=== PATIENT | female | born 1975 | race Caucasian/White ===

== ENCOUNTER → 2016-05-26 | Day surgery (SDC) | payer OTHER ==
[2016-05-24 17:00] VITALS: BMI 34.2
[~2016-05-26] MED LIST: ACETAMINOPHEN 1000 MG/100 ML VIAL (NON FORMULARY) IVPB ONE; ACETAMINOPHEN INJECTION 100 ML IVPB ONE; DEXAMETHASONE SOD PHOSPHATE 4 MG/1 ML VIAL ONE; KETOROLAC TROMETHAMINE 30 MG/1 ML VIAL ONE; LACTATED RINGERS SOLUTION 1,000 ML IV SCH; LIDOCAINE 1%/EPI 1:100000 (50 ML MULTI DOSE VIAL) ONE; LIDOCAINE HCL 1%, 10 MG/ML (20ML VIAL) IJ ONE; LIDOCAINE HCL 1%, 10 MG/ML (20ML VIAL) ONE; MIDAZOLAM HCL 2 MG/2 ML SINGLE DOSE VIAL ONE; ONDANSETRON 4 MG/2 ML VIAL IVPB PRN; ONDANSETRON 4 MG/2 ML VIAL IVPUSH PRN; OXYCODONE/APAP 5/325MG COMBO TABLET PO ONE; PROMETHAZINE HCL 25 MG/1 ML VIAL IVPUSH PRN; PROPOFOL 20 ML ONE; SODIUM CHLORIDE 1,000 ML IV SCH; ceFAZolin SODIUM 1 GM VIAL IVPB ONE; ceFAZolin SODIUM 1 GM VIAL ONE
[2016-05-26 11:21] VITALS: TEMP 98
[2016-05-26 12:49] VITALS: BP 108/64; PULSE 88
--- NOTE | 2016-05-27 10:09 | OP ---
DATE OF OPERATION: 05/26/2016 PREOPERATIVE DIAGNOSIS: Sebaceous cyst of the left scalp. POSTOPERATIVE DIAGNOSIS: Sebaceous cyst of the left scalp. PROCEDURE PERFORMED: Excision of sebaceous cyst of the left scalp. OPERATING SURGEON: Bubba Caruso MD ANESTHESIA: Local with MAC. OPERATIVE PROCEDURE: The patient was brought into the operating room, placed on the OR table in supine position. At that point, the patient was delivered of anesthesia, and then, her head was turned to the right side in order to expose the left side of the scalp. There was an approximately 3.5-4-cm sebaceous cyst under the skin posterior to the left ear. The left ear was then taped out of the way, and then, the hair over the mass was then cut, and the left side of the scalp behind the ear was then prepped and draped in the usual manner. At that point, 1% lidocaine without epinephrine was delivered to the area, and once this took effect, a scalpel was used to make an approximately 3.5-cm incision over the area. The incision was carried down through the skin and only very slightly into the very thin subcutaneous tissue. Immediately upon getting to subcutaneous tissues noted to be the mass, this was now unroofed in all 4 circumferential directions, starting first medially or anteriorly towards the ear, then continuing anteriorly and superiorly, and finally laterally towards the back of the scalp. This was done mostly with electrocautery which prevented any bleeding, and the mass, the base of it, was on the skull. As the mass was then lifted up, electrocautery continued to do the dissection until finally the mass was removed and sent off the field as specimen. There was some very minor bleeding, which was coming from the scalp muscle, which was easily controlled. At that point, irrigation was placed into the wound. The deeper layer of muscle was closed with 3-0 Vicryl in interrupted fashion, and the skin was closed with 3-0 nylon in vertical mattress fashion. Bacitracin ointment was applied. The patient was then awoken from the anesthesia and sent out of the operating room to the recovery room in stable condition. EXPECTED BLOOD LOSS: 20 mL. CONDITION: Patient transferred to the recovery room in stable condition. Dev [id number]
--- NOTE | 2016-05-27 12:26 | PATH ---
Surgical Pathology Report Patient Name: PATRICIA OLIVEIRA [facility]. Rec. #: [id number] /Age/Gender: 1975 (Age: 41) / F Account: [id number] Location: [facility] SURGICAL Taken: 05/26/2016 Received: 05/26/2016 Reported: 05/27/2016 Physicians: Bubba Caruso M.D. Specimen(s) Received SEBACEOUS CYST LEFT RETRO AURICULAR Clinical History Epidermal cyst left retroauricular Final Diagnosis SOFT TISSUE, LEFT RETROAURICULAR, EXCISION: BENIGN FIBROLIPOMA. Electronically Signed Rajinder Curtis M.D. Gross Description Received in formalin labeled "sebaceous cyst left retroauricular," is a 2.6 x 2.0 x 1.3 cm intact cystic structure. Sectioning reveals homogeneous yellow soft tissue. Maternal Fetal Physician sections are submitted in 2 cassettes. /05/26/2016 saudi/05/26/2016
== END | disposition home or self-care (01) ==
LOC: JASU-SURG 06:50
PROVIDERS: ATTEND Surgery
PROC: 0HB0XZZ Excision of Scalp Skin, External Approach (ICD-10-PCS; principal; 2016-05-26 08:00)
DX: L72.3 Sebaceous cyst (principal)
CPT/HCPCS: 84703; 88304-TC; 94760

== ENCOUNTER 2017-03-07 09:16 | Day surgery (SDC) | payer OTHER ==
[2017-03-06 13:53] VITALS: BMI 36.4
[2017-03-07 10:14] LABS: MCH 28.2 pg (25.7-33.7); MCHC 31.7 g/dl (32.0-36.0); MEAN PLT VOLUME 9.2 fl (7.5-11.1); PLATELET COUNT 301 K/MM3 (134-434); RBC 4.61 M/mm3 (3.60-5.2); RDW 15.7 % (11.6-15.6); WHITE BLOOD COUNT 7.4 K/mm3 (4.0-10.0)
[2017-03-07 10:16] LABS: INR 1.04 (0.82-1.09); PROTHROMBIN TIME (PATIENT) 11.7 SEC (9.98-11.88)
[2017-03-07 10:19] LABS: ACTIVATED PTT 28.4 SECONDS (26.9-34.4)
[2017-03-07 10:41] LABS: ALBUMIN 3.4 g/dl (3.4-5.0); ALK PHOS 74 U/L (45-117); ANION GAP 8 (8-16); BILIRUBIN,TOTAL 0.2 mg/dL (0.2-1.0); BLOOD UREA NITROGEN 14 mg/dL (7-18); CALCIUM 8.4 mg/dL (8.5-10.1); CHLORIDE 103 mmol/L (98-107); CO2 26 mmol/L (21-32); CREATININE 0.8 mg/dL (0.55-1.02); GLUCOSE,RANDOM 80 mg/dL (74-106); POTASSIUM 4.5 mmol/L (3.5-5.1); SGOT/AST 24 U/L (15-37); SGPT/ALT 26 U/L (12-78); SODIUM 137 mmol/L (136-145); TOT PROT 7.5 g/dl (6.4-8.2)
[2017-03-07 10:55] VITALS: PULSE 68
[2017-03-07 11:06] VITALS: BP 108/60
[2017-03-08 08:15] VITALS: TEMP 98.7
== END 2017-03-07 11:07 | disposition home or self-care (01) ==
LOC: JOR 09:16 → JASU-ENDO 09:16
PROVIDERS: ATTEND Surgery
PROC: 0DJ08ZZ Inspection of Upper Intestinal Tract, Via Natural or Artificial Opening Endoscopic (ICD-10-PCS; principal; 2017-03-07 09:30)
DX: R13.10 Dysphagia, unspecified (principal); K21.9 Gastro-esophageal reflux disease without esophagitis; Z98.84 Bariatric surgery status
CPT/HCPCS: 36415; 80053; 84703; 85027; 85610; 85730; 86850; 86900; 86901